=== PATIENT | male | born 1955 | race Caucasian/White ===

== ENCOUNTER 2020-07-15 07:40 | Day surgery (SDC) | payer OTHER ==
[~2020-07-15 07:40] MED LIST: Midazolam 1 MG/ML 2 ML SDV ONE; Propofol 200 MG/20 ML SDV ONE; fentaNYL 100 MCG/2 ML SDV ONE
[2020-07-15] MEDS ORDERED: Dextrose 5%-Lactated Ringers 1,000 ML IV SCH (08:15)
--- NOTE | 2020-07-18 12:35 | OR ---
DATE OF PROCEDURE: 07/15/2020 SURGEON: Howard Oliveira MD PREOPERATIVE DIAGNOSIS: Indication for screening colonoscopy. POSTOPERATIVE DIAGNOSIS: Normal colonoscopic examination. OPERATIVE PROCEDURE: Flexible colonoscopy. ANESTHESIA: IV sedation. INDICATION FOR PROCEDURE: 65-year-old male presenting with indication for screening colonoscopy. He has not had a previous colonoscopy and has no personal or family history of colon polyps or other colonic neoplasia. The plan is to proceed with colonoscopy with biopsies and polypectomy as indicated. Potential risks including bleeding and perforation were discussed, and the patient wishes to proceed. DETAILS OF THE PROCEDURE: The patient was taken to the operating room and was placed in a left lateral decubitus position. IV sedation was administered, after which the initial digital rectal exam was performed which was unremarkable. The colonoscope was then passed into the rectum with retroflexion revealing uncomplicated hemorrhoidal columns. Scope was eventually passed to the level of the cecum. The prep was quite good with only a small amount of liquid stool being present to that level. No abnormalities were noted. Specifically, there were no diverticula. No areas of colitis. No polyps or other signs of neoplasia. Scope was then withdrawn, the above findings reconfirmed, and the procedure concluded. The patient was taken to the recovery room in satisfactory condition. With the absence of either a personal or family history of colonic neoplasia, the next colonoscopy should be scheduled in 10 years. Howard Oliveira MD /[id number]
== END 2020-07-15 11:00 | disposition home or self-care (01) ==
LOC: JP.SDS 07:40
PROVIDERS: ATTEND Surgery
DX: Z12.11 Encounter for screening for malignant neoplasm of colon (principal); K64.9 Unspecified hemorrhoids
CPT/HCPCS: 45378; J2250; J2704; J3010; J7121